=== PATIENT | male | born 1980 | race Caucasian/White ===

== ENCOUNTER → 2024-09-15 10:21 | Outpatient (BNVA) | payer SELFPAY | PROVIDERS: Visit Provider Internal Medicine | DX: E05.90 Thyrotoxicosis, unspecified without thyrotoxic crisis or storm (principal); K30 Functional dyspepsia; I48.91 Unspecified atrial fibrillation; E03.9 Hypothyroidism, unspecified | CPT/HCPCS: 36415; 82784; 83516; 84439; 84443; 84480 ==

== ENCOUNTER 2024-10-28 10:15 | Outpatient (CLI) | payer OTHER, SELFPAY ==
[2024-10-28 11:19] LABS: Free T4 Free Thyroxine 0.49 ng/dL (0.82-1.77); Thyroid Stimulating Hormone 10.71 uIU/mL (0.27-4.20)
[2024-10-29 14:04] LABS: T3 Total 134 ng/dL (76-181)
== END 2024-10-28 10:16 | disposition home or self-care (01) ==
LOC: LAB 10:18
PROVIDERS: PCP Internal Medicine; Visit Provider Anesthesiology
DX: E03.9 Hypothyroidism, unspecified (principal); E05.90 Thyrotoxicosis, unspecified without thyrotoxic crisis or storm
CPT/HCPCS: 36415; 84439; 84443; 84480

== ENCOUNTER → 2024-10-29 11:46 | Outpatient (BNVA) | payer OTHER, SELFPAY | PROVIDERS: PCP Internal Medicine; Visit Provider Internal Medicine | DX: E03.9 Hypothyroidism, unspecified (principal); E05.90 Thyrotoxicosis, unspecified without thyrotoxic crisis or storm | CPT/HCPCS: 36415; 86376; 86800 ==

== ENCOUNTER 2024-11-18 09:03 | Outpatient (CLI) | payer OTHER, SELFPAY ==
[2024-11-18 10:04] LABS: Free T4 Free Thyroxine 0.91 ng/dL (0.82-1.77); Thyroid Stimulating Hormone 3.59 uIU/mL (0.27-4.20)
== END 2024-11-18 09:04 | disposition home or self-care (01) ==
PROVIDERS: PCP Internal Medicine; Visit Provider Internal Medicine
DX: E05.90 Thyrotoxicosis, unspecified without thyrotoxic crisis or storm (principal); I48.91 Unspecified atrial fibrillation
CPT/HCPCS: 36415; 84439; 84443

== ENCOUNTER → 2024-12-28 12:46 | Outpatient (BNVA) | payer OTHER, SELFPAY | PROVIDERS: PCP Internal Medicine; Visit Provider Internal Medicine | DX: E05.90 Thyrotoxicosis, unspecified without thyrotoxic crisis or storm (principal); I48.91 Unspecified atrial fibrillation | CPT/HCPCS: 36415; 84439; 84443; 84480 ==

== ENCOUNTER → 2025-03-16 11:34 | Outpatient (BNVA) | payer OTHER, SELFPAY | PROVIDERS: PCP Internal Medicine; Visit Provider Internal Medicine | DX: I48.91 Unspecified atrial fibrillation (principal); E05.90 Thyrotoxicosis, unspecified without thyrotoxic crisis or storm | CPT/HCPCS: 36415; 84439; 84443; 84480 ==